=== PATIENT | male | born 1975 | race Caucasian/White ===

== ENCOUNTER 2016-10-25 21:33 | Emergency (ER) | payer OTHER ==
[2016-10-25 21:36] VITALS: BP 132/92; BMI 26.9
[2016-10-25] MEDS ORDERED: XYLOCAINE 1 % (PLAIN) ONE (22:09)
[2016-10-25] MEDS ORDERED: XYLOCAINE 1 % (PLAIN) IM ONE (22:10)
[2016-10-25] MEDS ORDERED: ULTRAM PO ONE ×2 (22:11→22:57)
[2016-10-25] MEDS ORDERED: KEFLEX CAP 500 MG PO ONE ×4 (22:11→22:59)
--- NOTE | 2016-10-25 22:14 | DR.GENAD ---
HPI - PCP Primary Care Physician: Joel - Complaint/Symptoms Chief Complaint:: "I was doing some work in my bathroom and I fell and cut my left hand" - Nurses notes reviewed Nurses Notes Review: Yes - Source History Provided: Patient - Mode of Arrival Mode of Arrival: Ambulatory - Timing Onset of Chief Complaint: 10/25/16 Came on: Suddenly - Duration Duration: Constant How lon Duration: Hours - Location Location: right thumb - Severity Severity: Moderate - Modifying Factors Worsens:: movement - Associated Signs and Symptoms Associated Signs and Symptoms: unable to extend thumb PMH - PMH Past Medical History: Yes Past Medical History: Arthritis, Hypertension Past Surgical History: Yes Surgical History: Ortho Surgery Past Surgical History Comment: Neck, foot - Family History History of Family Medical Conditions: Yes Family Medical History: Cancer, Hypertension - Social History Does patient currently use any type of tobacco product: No Have you used tobacco products in the last 12 months: No Type of Tobacco Use: None Does any household member use tobacco: No Alcohol Use: None Do you use any recreational Drugs:: No Lives With: Family Lives Where: Home - infectious screening In the last 2 months have you had wt loss of >10#?: NO Have you had fever, night sweats or hemotysis?: No Have you traveled outside the country in the last 6 months?: No Isolation: Standard ROS - Review of Systems Constitutional: No Symptoms Reported Eyes: No Symptoms Reported ENTM: No Symptoms Reported Respiratoy: No Symptoms Reported Cardiovascular: No Symptoms Reported Gastrointestinal/Abdominal: No Symptoms Reported Genitourinary: No Symptoms Reported Neurological: No Symptoms Reported Musculoskeletal: Joint Pain (thumb) Integumentary: Wound (left thumb) Hematologic/Lymphatic: No Symptoms Reported Endocrine: No Symptoms Reported Psychiatric: No Symptoms Reported All Other Systems: Reviewed and Negative PE - Vital Signs Vitals: Temperature 98.2 F Pulse Rate 115 Respiratory Rate 18 Blood Pressure [] 131/72 Blood Pressure [] 128/76 Blood Pressure 132/92 O2 Sat by Pulse Oximetry 96 - General Limitations: No Limitations General Appearance: Alert, In No Apparent Distress - Head Head Exam: Normal Inspection - Eyes Eye exam: Normal Appearance, EOMI. negative: Scleral Icterus, Conjunctival Injection - Neck Neck Exam: Normal Inspection, Full ROM, Trachea Midline - Respiratory Respiratory Exam: Normal Lung Sounds Bilat. negative: Accessory Muscle Use, Respiratory Distress - Extremities Extremities Exam: Tenderness. negative: Normal Inspection, Full ROM (unable to extend thumb) - Neurologic Neurological Exam: Alert, Oriented X3, CN II-XII Intact - Psychiatric Psychiatric Exam: Normal Affect - Skin Skin Exam: Normal Color. negative: Intact (left thumb with avulsion cut 3cm, unable to extend thumb. ) Procedures - Laceration/Wound Repair Left Hand Wound Length (cm): 3 Wound's Depth, Shape: Flap Betadine Prep?: Yes Anesthesia: 1% Lidocaine Volume Anesthetic (ccs): 7 Wound Debrided: moderate Wound Repaired With: sutures Suture Size/Type: 4:0, [place] Number of Sutures: 8 Layer Closure?: No - Diagnosis Discharge Problem: Laceration of thumb Qualifiers: Encounter type: initial encounter Damage to nail status: with damage Foreign body presence: without foreign body Laterality: left Qualified Code(s): S61.112A - Laceration without foreign body of left thumb with damage to nail, initial encounter - Discharge Plan Condition: Stable Prescriptions: Cephalexin [KEFLEX CAP 500 MG *] 500 mg PO TID #15 cap Tramadol HCl [ULTRAM 50 MG *] 50 mg PO Q8H PRN #15 tab PRN Reason: Pain - Follow ups/Referrals Follow ups/Referrals: ROSY OWEN [Primary Care Provider] - 3 days - Instructions
[2016-10-25] MEDS ORDERED: ULTRAM ONE ×2 (22:18→22:59)
--- NOTE | 2016-10-25 23:23 | RAD ---
Left hand three views Indication: Laceration the left thumb. Findings: There is soft tissue injury over the left thumb proximal phalanx. No cortical lucency or r adiodense foreign body identified. No fracture seen no dislocation seen. Impression: Laceration of the thumb without acute osseous abnormality or radiodense foreign body Reported By:
== END 2016-10-25 23:11 | disposition home or self-care (01) ==
LOC: ER 21:46
PROC: 0XQK0ZZ Repair Left Hand, Open Approach (ICD-10-PCS; principal; 2016-10-25)
DX: S61.112A Laceration without foreign body of left thumb with damage to nail, initial encounter (principal); W01.198A Fall on same level from slipping, tripping and stumbling with subsequent striking against other object, initial encounter; Y92.89 Other specified places as the place of occurrence of the external cause
CPT/HCPCS: 73130; 99282; 99283; J2001